=== PATIENT | female | born 1985 | race Caucasian/White ===

== ENCOUNTER 2017-04-13 16:28 | Outpatient (CLI) | payer OTHER ==
--- NOTE | 2017-04-13 21:51 | MRI Report ---
EXAM: RIGHT KNEE MRI WITHOUT CONTRAST EXAM DATE: 04/13/2017 05:05 PM. CLINICAL HISTORY: Right knee pain. COMPARISON: None. TECHNIQUE: Multiplanar, multisequence T1-weighted and fluid-sensitive sequences of the knee without c ontrast. Other: None. FINDINGS: Bones: No fractures or subluxations. No marrow edema. No bone lesions. Articular Cartilage: Unremarkable. Medial Meniscus: The medial meniscus is intact. Lateral Meniscus: The lateral meniscus is intact. Cruciate Ligaments: The anterior and posterior cruciate ligaments are intact. Collateral Ligaments: The medial collateral and lateral collateral ligamentous structures are intact. Tendons: The quadriceps, patellar, semimembranosus, and popliteus tendons are unremarkable. Musculature: No edema or fatty atrophy. Other: Very small joint effusion. No popliteal cyst. No loose bodies. The medial and lateral retinac lita are intact. The subcutaneous tissues and fat pads are unremarkable. IMPRESSION: 1. Very small joint effusion. 2. Otherwise, unremarkable right knee MRI without contrast. [facility] MUSCULOSKELETAL RADIOLOGY SECTION Referring Provider Line: [phone] SITE ID: [id number]
== END 2017-04-13 16:29 | disposition home or self-care (01) ==
LOC: DI 16:28
PROVIDERS: ATTEND Registered Nurse Diabetes Educator
DX: M25.561 Pain in right knee (principal); M25.461 Effusion, right knee

== ENCOUNTER 2024-03-31 11:42 | Outpatient (CLI) | payer OTHER ==
--- NOTE | 2024-04-01 05:38 | Ultrasound Report ---
PROCEDURE: Soft Tissue Head or Neck INDICATIONS: LARYNGITIS TECHNIQUE: Real-time scanning was performed of the thyroid gland, with image documentation. COMPARISON: None FINDINGS: Under the area of concern on the right side of the neck, there is no sonographic evidence of an under lying mass. The visualized sternocleidomastoid muscle, internal jugular vein, common carotid artery, and right thyroid lobe are within normal limits. IMPRESSION: No sonographic abnormality to explain the patient's right-sided neck pain. If there are persistent sy mptoms, a CT of the neck with contrast (please put a radiopaque marker at the site of maximal tendern ess) would be recommended for further evaluation. Reviewed by: Jona Castillo MD on 04/01/2024 5:37 AM PDT Approved by: Jona Castillo MD on 04/01/2024 5:37 AM PDT Station ID: [id number]
== END 2024-03-31 11:43 | disposition home or self-care (01) ==
LOC: DI 11:42
PROVIDERS: ATTEND Nurse Practitioner Family
DX: J04.0 Acute laryngitis (principal)